=== PATIENT | male | born 1955 | race American Indian/Alaskan Native ===

== ENCOUNTER 2018-11-26 06:24 | Emergency (ER) | payer SELFPAY ==
[2018-11-26] MEDS ORDERED: CORDARONE IV ONE (06:36)
[2018-11-26] MEDS ORDERED: XYLOCAINE MPF 2% ONE (06:36)
[2018-11-26] MEDS ORDERED: ADRENALIN ONE (06:36)
[2018-11-26] MEDS ORDERED: INTROPIN DRIP 800 MG/D5W 250 ML IV ONE (06:36)
--- NOTE | 2018-11-26 06:42 | Emergency Department Report ---
HPI - General Chief Complaint: Cardiac Arrest/CPR Time Seen by Provider: 11/26/18 06:37 - HPI HPI: Room 22 The patient is a 63-year-old male presenting with a chief complaint cardiac arrest. Per EMS they received a call for shortness of breath and arrived on scene 05:48 to find the patient unresponsive on the bathroom floor as 05:48. The patient was found to be in PEA. ACLS protocols initiated and EMS state they defibrillated the patient twice for V. fib. 2 rounds of epi and 1 amp of sodium bicarbonate were administered prior to arrival. Upon arrival to the ED the patient is being bagged via BVM and was subsequently intubated by myself and ACLS protocols were continued without return of spontaneous circulation Location: [See above] Duration: [See above] Quality: [See above] Severity: [See above] Modifying factors: [see above] Context: [see above] Mode of transportation: [not driving] ED Past Medical Hx - Past Medical History Previous Medical History?: No - Surgical History Hx Pacemaker: No - Family History Family history: no significant - Social History Smoking Status: Unknown if ever smoked ED Review of Systems ROS: Stated complaint: CARDIAC ARREST Other details as noted in HPI Comment: Unobtainable due to pts medical conditions Physical Exam - Physical Exam Physical Exam: GENERAL: The patient is well-developed well-nourished male lying on stretcher apneic and pulseless receiving chest compressions and being bagged via BVM. [] HEENT: Normocephalic. Atraumatic. Vomitus in oropharynx NECK: Trachea midline CHEST/LUNGS: No spontaneous respirations. After intubation by myself breath sounds equal bilaterally HEART/CARDIOVASCULAR: No heart sounds. PA will monitor ABDOMEN: Abdomen is obese SKIN: There is no rash. There is no edema. There is no diaphoresis. NEURO: GCS 3 MUSCULOSKELETAL: There is no evidence of acute injury. - Intubation Time Out Performed: No Sedative: none Laryngoscope: Irais Size: 3 ET Tube Size: 8 Tube Secured Depth (cm): 24 Tube Secured Location: lips Tube Placement Confirmation: visualized tube passing t, equal breath sounds bilat, no breath sounds over epi, confirmation by capnometr Patient Tolerated Procedure: no complications Intubation Complications: none ED Medical Decision Making - Differential Diagnosis cardiac arrest, respiratory arrest Critical care attestation.: If time is entered above; I have spent that time in minutes in the direct care of this critically ill patient, excluding procedure time. ED Disposition Clinical Impression: Respiratory arrest Disposition: Z-41 HOSPICE- MED FAC Is pt being admited?: No Does the pt Need Aspirin: No Condition: Poor Time of Disposition: 06:41 (patient )
== END 2018-11-26 11:08 ==
LOC: ED 06:24
DX: I46.9 Cardiac arrest, cause unspecified (principal); R09.2 Respiratory arrest
CPT/HCPCS: 31500; 99285; J0171; J0282; J1265